=== PATIENT | female | born 1940 | race Caucasian/White ===

== ENCOUNTER → 2022-09-02 | Outpatient (REF) | payer OTHER, MEDICARE, SELFPAY ==
[2022-09-02 10:28] LABS: Mucous, Urine 0 SEEN /hpf (<or=2+); Red Blood Cells-Urine 0 SEEN /hpf (0-5)
[2022-09-02 10:42] LABS: Color, Urine Yellow (Yellow); Glucose, Dipstick Normal (Normal); Ketone-Dipstick Negative (Negative); Leukocyte Esterase-Dipstick 500 /ul (Negative); Nitrite-Dipstick Negative (Negative); Occult Blood-Urine 10 /ul (Negative); Protein-Dipstick 100 mg/dl (Negative); Urine Bilirubin Dipstick Negative (Negative); Urine Clarity Clear (Clear); Urine Urobilinogen Normal (Normal)
[2022-09-02 11:02] LABS: Absolute Neutrophil Count 4.2 X10^3/uL (2.0-7.7); Basophil# 0.04 X10^3/uL; Basophil% 0.7 % (0-1); Eosinophil# 0.15 X10^3/uL; Eosinophils% 2.6 % (0-5); Hematocrit 37.1 % (37-47); Lymphocyte % 12.2 % (19-41); Mean Corp Hgb Conc 32.3 g/dL (32-36); Mean Corpuscular Hgb 28.2 pg (27.0-32.0); Mean Corpuscular Volume 87.3 fL (81-99); Monocyte# 0.61 X10^3/uL; Monocyte% 10.6 % (0-10); NRBC Flagged by Analyzer 0 % (0-5); Neutrophil # 4.22 X10^3/uL (2.7-7.7); Neutrophil % 73.6 % (47-70); Platelet Count 221 K/mm3 (150-450); RBC Distribution Width CV 13.9 % (11.6-14.6); RBC Distribution Width SD 44.5 fl (35.1-43.9); Red Blood Count 4.25 M/mm3 (4.2-5.4); White Blood Count 5.7 K/mm3 (4.4-11.0)
[2022-09-02 11:22] LABS: Bacteria 1+ /hpf (None Seen); Squamous Epithelial Cells - UA 10-25 SEEN /hpf (5-10); White Blood Cells 10-25 SEEN /hpf (0-5)
[2022-09-02 11:37] LABS: ALB/GLOB Ratio 0.8 RATIO (0.9-2.4); AST(SGOT) 24 U/L (15-37); Alanine Aminotransfer ALT/SGPT 21 U/L (13-56); Albumin, Serum 3.2 g/dL (3.2-5.0); Alkaline Phosphatase 108 U/L (45-117); Anion Gap 5 (5-15); BUN 32 mg/dL (7-18); Calcium,Total 9.1 mg/dL (8.5-10.1); Chloride 109 mmol/L (98-107); Creatinine, Serum 1.78 mg/dL (0.55-1.02); EST Glomerular Filtration Rate 29 mL/min (>60); Est Glom Filt Rate - Afr Amer 35 mL/min (>60); Globulin 3.8 g/dL (2.2-4.2); Glucose 206 mg/dL (74-106); Potassium 4.3 mmol/L (3.5-5.1); Sodium Level 138 mmol/L (136-145); T4 Total, Thyroxin 9.4 ug/dL (4.8-13.9); Thyroid Stim Hormone (TSH) 0.83 uIU/mL (0.358-3.74)
[2022-09-04 07:42] LABS: Vitamin D,25 Hydroxy 33.1 ng/mL
== END ==
LOC: OLS.BROOKB 10:05
PROVIDERS: Referring Provider Family Medicine; Visit Provider Family Medicine
DX: N39.0 Urinary tract infection, site not specified (principal); F03.90 Unspecified dementia, unspecified severity, without behavioral disturbance, psychotic disturbance, mood disturbance, and anxiety; E55.9 Vitamin D deficiency, unspecified; R53.83 Other fatigue; I10 Essential (primary) hypertension
CPT/HCPCS: 36415; 80053; 81001; 82306; 84436; 84443; 85025; 87086; 87088

== ENCOUNTER 2022-09-05 12:09 | Emergency (ER) | payer OTHER, MEDICARE, SELFPAY ==
[2022-09-05 12:11] VITALS: BP 154/102; PULSE 60; RESP 16; TEMP 36.1; O2SAT 96; BMI 21.2
--- NOTE | 2022-09-05 12:25 | CT_ITS ---
STUDY: CT BRAIN WITHOUT CONTRAST REASON FOR EXAM: Female, 82 years old. head injury RADIATION DOSAGE (If Supplied By Facility): CTDIvol = ( 44.99 ) mGy, DLP = ( 762.36 ) mGycm TECHNIQUE: Transaxial CT imaging of the brain was performed without administration of intravenous contrast material. Individualized dose optimization techniques were used for this CT. COMPARISON: No relevant priors. FINDINGS: Normal soft tissue structures. Normal calvarium. There is mild cerebral atrophy with widening of the extra-axial spaces and ventricular dilatation. There are areas of decreased attenuation within the white matter tracts of the supratentorial brain, consistent with microvascular disease changes. There are small punctate calcifications of the basal ganglia which are seen in the aging brain as a normal variant. Probable old lacunar infarct of the right side of the elizabeth. There is mild cerebellar atrophy. 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 Encephalomalacia in the right frontal and parietal lobes from previous infarcts. 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 There is no intracranial hemorrhage. There are no findings of an acute ischemic infarction. Normal visualized paranasal sinuses. CT/Brain/Head without Contrast IMPRESSION: No definite acute abnormality. Old infarcts. Chronic involutional changes of the brain. Electronically Signed: John Evans MD at 12:54 EDT ,
--- NOTE | 2022-09-05 12:25 | CT_ITS ---
STUDY: CT CERVICAL SPINE WITHOUT CONTRAST REASON FOR EXAM: Female, 82 years old. polytrauma RADIATION DOSAGE (If Supplied By Facility): CTDIvol = ( 14.81 ) mGy, DLP = ( 300.52 ) mGycm TECHNIQUE: High resolution transaxial imaging was performed without contrast material. Sagittal and coronal images were reconstructed. Individualized dose optimization techniques were used for this CT. COMPARISON: None FINDINGS: No definite acute fracture/dislocation. The cervical junction is intact. C1-C2 articulation is intact. Curvature is within normal limits. There is normal alignment. Facet joints are intact at all levels bilaterally. No jumped facets. There is multilevel spondyloarthropathy. Multilevel degenerative disc disease seen. Multilevel loss of disc height. Multilevel posterior marginal osteophytes and disc bulges. Multilevel neural foraminal narrowing. Multilevel narrowing of the spinal canal. Heavily calcified carotid arteries, otherwise the paraspinal soft tissues and structures are unremarkable. CT/Spine Cervical without Contras IMPRESSION: There is no definite acute fracture/dislocation. Degenerative changes. Electronically Signed: John Evans MD at 12:56 EDT ,
[2022-09-05] MEDS: Lidocaine 1% (20 ml mdv) 20 ML Vial INFILT (12:29)
--- NOTE | 2022-09-05 12:41 | ED.VIS.FALL ---
HPI HPI - Fall History of Present Illness Chief Complaint: Fall Informant: EMS and SNF Narrative Narrative: Sent in from [facility] unwitnessed fall head injury. History of Alzheimer's dementia. Patient denies any symptoms. Reviewing records no anticoagulants she is DNR CCA as of 3 days ago. Denies chest pains abdominal pain denies nausea or vomiting. PFSH PFSH Medical History Alzheimer disease CAD (coronary artery disease) DMII (diabetes mellitus, type 2) HLD (hyperlipidemia) HTN (hypertension) Seizures Allergy/AdvReac Type Severity Reaction Status Date / Time celecoxib [From Celebrex] Allergy PT UNABLE Verified 09/05/22 13:16 TO RESPOND-NEEDS F/U ezetimibe [From Zetia] Allergy PT UNSURE Verified 09/05/22 13:16 OF REACTION hydralazine Allergy PT UNABLE Verified 09/05/22 13:16 TO RESPOND-NEEDS F/U Social History Smoking Status: Unknown if ever smoked ROS ROS ED Constitutional Constitutional ED: Denies chills, fever(s) or sweats Eyes Eyes: Denies change in vision ENT ENT ED: Denies dysphagia or sore throat Cardiovascular Cardiovascular: Denies chest pain, leg edema, palpitations or racing heartbeat Respiratory/Chest Respiratory/Chest: Denies cough, dyspnea or dyspnea on exertion Gastrointestinal Gastrointestinal: Denies abdominal pain, diarrhea, nausea or vomiting Genitourinary Genitourinary ED: Denies dysuria, hematuria or urinary frequency Musculoskeletal Musculoskeletal: Denies back pain, extremity pain or neck pain Integumentary Reports wounds; Denies rash Neurologic Neurologic: Denies headache(s), paresthesias or weakness EXAM Physical Exam Const Vital Signs: 09/05/22 12:11 09/05/22 12:15 09/05/22 15:12 Temperature 97.0 F L Temperature Source Temporal Pulse Rate 60 66 Respiratory Rate 16 16 Respiratory Effort Normal Non-Labored Respiratory Depth Normal Respiratory Pattern Normal Blood Pressure 154/102 H 150/52 H Blood Pressure Mean 119 84 Pulse Ox 96 97 Oxygen Delivery Method Room Air Room Air Room Air 09/05/22 17:49 Temperature Temperature Source Pulse Rate 69 Respiratory Rate 16 Respiratory Effort Respiratory Depth Respiratory Pattern Blood Pressure 132/94 H Blood Pressure Mean 106 Pulse Ox 95 Oxygen Delivery Method Room Air Positive well nourished and well developed Constitutional Narrative: No acute distress, nontoxic General Appearance ED: well developed HEENT Reports moist mucous membranes HEENT Narrative: 3 cm laceration right temporal region with no active bleeding. No hemotympanums. normocephalic Eyes PERRL, EOMs intact bilaterally and conjunctivae normal General Eye ED: Yes normal appearance of both eyes Neck no lymphadenopathy and supple General: Negative for tenderness Chest Wall inspection of chest normal and palpation of chest normal Chest: Negative for tenderness Resp normal respiratory effort and normal air movement Effort and Inspection: symmetric chest movement; Negative for respiratory distress Cardio regular rate, regular rhythm and no murmurs Peripheral Pulses: pulses 2+ throughout GI normal to inspection, nondistended, normoactive bowel sounds and non-tender Palpation: Negative for guarding or rebound tenderness present Back/Spine no CVA tenderness and no thoracic nor lumbar tenderness Extremity Extremity Narrative: Patient tenderness left lower pelvic mild pain with logroll. There is no deformities, no shortening or rotation. Distal pulses are intact. General Extremety ED: Negative for edema or tenderness General Extremity: Negative for edema Neuro no sensory deficits noted Neuro Narrative: Alert to person and following commands. Sensorium / Orientation: awake and alert Skin no rashes or lesions noted and no wounds MDM MDM MDM Narrative Medical decision making narrative: Interventions / MDM: Differential diagnosis: Cranial hemorrhage, scalp laceration, left hip fracture, hip contusion, pelvic fracture Diagnosis considered but do not suspect: N/A My EKG interpretation: N/A Imaging independently reviewed and interpreted by myself: CT brain/cervical spine: No intracranial hemorrhage no cervical spine fractures also read by radiology. 3 view left hip and pelvis: No fracture or dislocation. External documents reviewed: N/A Test considered but not ordered:N/A ED course: Patient unwitnessed fall dementia history DNR [facility]. No anticoagulation. Trauma scans head and neck was negative. On exam had hip pain with no deformities. X-ray negative. Reevaluation increasing pain attempted sitting she had increasing pain, granddaughter was present. She has been at the memory unit only for the past week. She is ambulatory without any assistance. Discussed secondary to increasing pain needs to rule out occult fracture. MRI of the pelvis/hip was ordered. 1340: Procedure note: Verbal consent from granddaughter. Normal sterile conditions. 2 cc 1% lidocaine used for local analgesia wound right temporal region. Cleanse with normal saline. No visualized foreign bodies. Total 3, 6-0 nylon simpleinterrupted sutures used for good approximation of the wound. Patient tolerated procedure well. Bacitracin placed by myself. 1610: Called by MRI department, states patient moving around after additional morphine was given. The report is nondiagnostic. Discussed with nursing for Ativan IM to be given. 1700: Patient returned from imaging pending read. Increasing agitation and with her dementia. Granddaughter has seen this before. She is scheduled for Seroquel for which she takes 25 mg twice a day. She is likely not take oral medicine at this time, granddaughter agrees with given IM Geodon. This will be ordered. 1752: MRI results were limited however osseous structures were seen in negative for any fractures. Patient had better movement of her hips on reevaluation. She is at facility that can care for her. Negative occult fractures no intracranial hand read, sutures placed from the laceration. She will be discharged back to the facility. Re-evaluation: stable Disposition discussed with patient/family/significant other: granddaughter Case discussed with consulting clinician: N/A This note was generated with [employer] dictation software. It may contain incorrect words, spelling, and punctuation that were not noted in checking the note before signing. Radiography Diagnostic Testing: Clinical Impression(s) from Imaging Studies Brain CT 09/05/22 12:25 IMPRESSION: No definite acute abnormality. Old infarcts. Chronic involutional changes of the brain. Electronically Signed: John Evans MD at 12:54 EDT , Cervical Spine CT 09/05/22 12:25 IMPRESSION: There is no definite acute fracture/dislocation. Degenerative changes. Electronically Signed: John Evans MD at 12:56 EDT , Hip/Pelvis X-Ray 09/05/22 12:45 IMPRESSION: No acute fracture or dislocation seen. Electronically Signed: John Evans MD at 12:59 EDT , Pelvis MRI 09/05/22 13:19 IMPRESSION: 1. Markedly limited study due to lack of patient cooperation and subsequent motion artifact. The study is incomplete due to noncompliance by the patient. 2. No visualized pelvic or hip fracture. 3. No visualized soft tissue abnormality of the pelvis. Electronically Signed: Baldo Macias DO at 17:38 EDT , Discharge Plan Triage Chief Complaint: Fall ED Provider: Jose J Scott Dx/Rx/DC Orders Clinical Impression: Fall, Head injury, Laceration of scalp, Contusion of hip, left, Dementia Instructions: ED Head Injury (Adult), ED Hip Contusion, ED Laceration Scalp Stitches or [place] Activity Restrictions/Additional Instructions: CT head and neck are negative. Left hip x-ray negative. MRI of the left hip also negative. 3 sutures placed on the laceration. Patient will need this removed in 5 to 7 days. Disposition Disposition: Home, Self Care
--- NOTE | 2022-09-05 12:45 | RAD_ITS ---
STUDY: X-RAY - PELVIS AND LEFT HIP REASON FOR EXAM: Female, 82 years old. injury TECHNIQUE: 3 views of the pelvis and hip. COMPARISON: None. FINDINGS: There is a non-specific bowel gas pattern. Normal visualized soft tissue structures. There are atherosclerotic vascular calcifications. Normal bilateral iliac wings, sacroiliac joints and visualized sacrum. Normal bilateral superior and inferior pubic rami. Normal pubic symphysis. Normal bilateral ischial tuberosities. There are osteoarthritic changes of the femoral head with marginal osteophyte formation. Normal acetabulum. There is moderate articular joint space narrowing of the hip. RAD/HIP, UNI W/ Pelvis 2-3 Views IMPRESSION: No acute fracture or dislocation seen. Electronically Signed: John Evans MD at 12:59 EDT ,
--- NOTE | 2022-09-05 13:17 | ED.RN ---
this rn attempts to get pt up to ambulate. pt unable to sit up without extreme pain to left hip area
--- NOTE | 2022-09-05 13:19 | MRI_ITS ---
STUDY: MR PELVIS WITHOUT CONTRAST REASON FOR EXAM: Female, 82 years old. Left hip injury. Fall. Dementia. Patient refused exam and was crawling off the table. Marked motion artifact despite medication. TECHNIQUE: Standardized fat and water weighted pulse sequences were obtained in all 3 orthogonal planes. COMPARISON: Pelvis and left hip, 05/08/2022 FINDINGS: Normal urinary bladder. Normal visualized small intestine. Normal visualized colon. Normal appearing uterus. No adnexal mass. There is no pelvic fluid. There is no pelvic mass lesion or lymphadenopathy. No free air. Normal visualized pelvic arteries. Normal osseous structures. No evidence of fracture or dislocation. Normal abdominal wall. MRI/Pelvis (Routine) IMPRESSION: 1. Markedly limited study due to lack of patient cooperation and subsequent motion artifact. The study is incomplete due to noncompliance by the patient. 2. No visualized pelvic or hip fracture. 3. No visualized soft tissue abnormality of the pelvis. Electronically Signed: Baldo Macias DO at 17:38 EDT ,
[2022-09-05] MEDS: Morphine 2 MG/ML Syringe IM ×2 (13:27→15:50)
[2022-09-05 15:12] VITALS: BP 150/52; PULSE 66; RESP 16; O2SAT 97
[2022-09-05] MEDS: LORazepam 2 MG/ML Syringe 1 MG IM (16:24)
--- NOTE | 2022-09-05 16:52 | RAD.NOTE ---
Partial exam only. Pt medicated x 2 and still refusing exam. Screaming in scanner, moving, attempting to climb off table. Pt returned to ER room and charge nurse notified
[2022-09-05] MEDS: Ziprasidone IM 20 MG/ML VIAL 10 MG IM (17:08)
[2022-09-05 17:49] VITALS: BP 132/94; PULSE 69; RESP 16; O2SAT 95
--- NOTE | 2022-09-05 18:17 | NURSING ---
CALLED [facility], ETA IS 2 TO 3 HOURS
--- NOTE | 2022-09-05 20:09 | ED.RN ---
Attempted to call report to Agata Melgar. no answer at this time.
[2022-09-05 20:28] VITALS: PULSE 68; RESP 17; O2SAT 94
[2022-09-05 21:56] VITALS: BP 165/97; PULSE 70; RESP 20; O2SAT 95
== END 2022-09-05 22:41 | disposition home or self-care (01) ==
PROVIDERS: Emergency Provider Emergency Medicine; Visit Provider Emergency Medicine
DX: S01.01XA Laceration without foreign body of scalp, initial encounter (principal); F02.80 Dementia in other diseases classified elsewhere, unspecified severity, without behavioral disturbance, psychotic disturbance, mood disturbance, and anxiety; G30.9 Alzheimer's disease, unspecified; S70.02XA Contusion of left hip, initial encounter; I25.10 Atherosclerotic heart disease of native coronary artery without angina pectoris; W19.XXXA Unspecified fall, initial encounter
CPT/HCPCS: 12002; 70450; 72125; 72195; 73502; 96372; 99284; J3486

== ENCOUNTER → 2022-09-11 | Outpatient (REF) | payer OTHER, SELFPAY ==
[2022-09-11 08:40] LABS: Bacteria 0 SEEN /hpf (None Seen); Mucous, Urine 0 SEEN /hpf (<or=2+); Red Blood Cells-Urine 0 SEEN /hpf (0-5); Squamous Epithelial Cells - UA 0 SEEN /hpf (5-10); White Blood Cells 0 SEEN /hpf (0-5)
[2022-09-11 09:23] LABS: Color, Urine Yellow (Yellow); Glucose, Dipstick 50 mg/dl (Normal); Ketone-Dipstick 5 mg/dl (Negative); Leukocyte Esterase-Dipstick 25 /ul (Negative); Nitrite-Dipstick Negative (Negative); Occult Blood-Urine Negative /ul (Negative); Protein-Dipstick 100 mg/dl (Negative); Specific Gravity, Urine 1.015 (1.002-1.030); Urine Bilirubin Dipstick Negative (Negative); Urine Clarity Sl. Cloudy (Clear); Urine Urobilinogen Normal (Normal)
== END ==
LOC: OLS.BROOKB
PROVIDERS: Referring Provider Family Medicine; Visit Provider Family Medicine
DX: R53.83 Other fatigue (principal); R50.9 Fever, unspecified; Z79.899 Other long term (current) drug therapy
CPT/HCPCS: 81001; 87086; 87088

== ENCOUNTER → 2022-09-14 | Outpatient (REF) | payer OTHER, SELFPAY ==
[2022-09-14 10:27] LABS: Valproic Acid (Depakene) Level 20 ug/mL (50-100)
== END ==
LOC: OLS.BROOKB 05:00
PROVIDERS: Visit Provider Family Medicine
DX: F03.90 Unspecified dementia, unspecified severity, without behavioral disturbance, psychotic disturbance, mood disturbance, and anxiety (principal); Z79.899 Other long term (current) drug therapy
CPT/HCPCS: 36415; 80164

== ENCOUNTER → 2022-09-18 | Outpatient (REF) | payer OTHER, MEDICARE, SELFPAY ==
[2022-09-18 08:32] LABS: Valproic Acid (Depakene) Level 14 ug/mL (50-100)
== END ==
LOC: OLS.BROOKB 05:00
PROVIDERS: Visit Provider Family Medicine
DX: F03.90 Unspecified dementia, unspecified severity, without behavioral disturbance, psychotic disturbance, mood disturbance, and anxiety (principal); Z79.899 Other long term (current) drug therapy
CPT/HCPCS: 36415; 80164

== ENCOUNTER → 2022-10-02 | Outpatient (REF) | payer MEDICARE, OTHER, SELFPAY ==
[2022-10-02 08:48] LABS: Hemoglobin A1c 7.4 % (3.8-5.6)
== END ==
LOC: OLS.BROOKB 05:00
PROVIDERS: Visit Provider Family Medicine
DX: R73.09 Other abnormal glucose (principal)
CPT/HCPCS: 36415; 83036

== ENCOUNTER 2022-10-08 19:14 | Emergency (ER) | payer OTHER, SELFPAY ==
[2022-10-08 19:15] VITALS: BP 167/99; RESP 18; TEMP 36.2; O2SAT 97; BMI 24.9
--- NOTE | 2022-10-08 19:34 | CT_ITS ---
EXAM: CT CERVICAL SPINE WITHOUT INTRAVENOUS CONTRAST CLINICAL INDICATION: nec pain TECHNIQUE: Helically acquired images were obtained of the cervical spine without intravenous contrast. 2D reformatted images were reviewed. This CT exam was performed using one or more of the following dose reduction techniques: automated exposure control, adjustment of the mA and/or kV according to patient size, and/or use of iterative reconstruction technique. COMPARISON: No relevant prior studies available. FINDINGS: VERTEBRAE: See below. DISCS/SPINAL CANAL/NEURAL FORAMINA: There is disc space narrowing at C4-5, C5-6 and C6-7. There is severe right bony neural foraminal narrowing at C4-5. SOFT TISSUES: Unremarkable. No prevertebral soft tissue swelling. LYMPH NODES: Unremarkable. No cervical adenopathy. MASTOID AIR CELLS: There is fluid in the right mastoid air cells. LUNG APICES: Unremarkable as visualized. Clear. CT/Spine Cervical without Contras IMPRESSION: 1. No acute osseous abnormalities cervical spine. 2. Multilevel degenerative change with disc space narrowing and bony neural foraminal narrowing. Electronically Signed: Ascencion Barrera MD at 21:34 EDT ,
--- NOTE | 2022-10-08 19:34 | CT_ITS ---
EXAM: CT HEAD WITHOUT INTRAVENOUS CONTRAST CLINICAL INDICATION: head TECHNIQUE: Multiple axial images were obtained of the head without intravenous contrast. This CT exam was performed using one or more of the following dose reduction techniques: automated exposure control, adjustment of the mA and/or kV according to patient size, and/or use of iterative reconstruction technique. COMPARISON: 09/05/2022 FINDINGS: BRAIN AND EXTRA-AXIAL SPACES: There is minimal encephalomalacia in the inferior aspect of the left cerebellum which is stable represent small remote infarct. There is stable mild enlargement of the ventricular system and cortical sulci. There is hypoattenuation in the periventricular white matter. Stable minimal encephalomalacia in the high right frontal and parietal lobes. No intra- or extra-axial hemorrhage. No intracranial mass or mass effect. Basal cisterns are patent. BONES/JOINTS: Unremarkable. No discrete lytic or blastic abnormalities. VASCULATURE: There is artifact from an aneurysm coil. SINUSES: Unremarkable as visualized. Clear. MASTOID AIR CELLS: Unremarkable. Clear. ORBITS: Visualized globes, extraocular muscles, optic nerves and retrobulbar fat appear unremarkable. CT/Brain/Head without Contrast IMPRESSION: 1. No acute intracranial abnormality. There has been no change from the reference. 2. Stable underlying senescent change with small vessel ischemia. 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 Electronically Signed: Ascencion Barrera MD at 21:31 EDT ,
--- NOTE | 2022-10-08 19:40 | EDS_ITS ---
HPI <NOMAN Page - Last Filed: 10/08/22 20:46> History of Present Illness Chief Complaint: Fall Narrative Narrative: Patient is 82-year-old female that lives in a dementia unit with history of dementia, anxiety who presents to the emergency department after mechanical fall. Patient has been known to get out of bed on her own, she fell. There fall specifics are unknown, patient was found down. The patient could not get back up, the staff called the squad concerning for a hip fracture. Patient is not any blood thinners have there is unknown if she hit her head or not. Per the family, they are acting appropriate. PFS <NOMAN Page - Last Filed: 10/08/22 20:46> [facility] Medical History (Updated 10/08/22 @ 23:[address] Conrado Sosa, DO) Alzheimer disease Aneurysm Atherosclerotic heart disease Bradycardia CAD (coronary artery disease) DMII (diabetes mellitus, type 2) Dysphagia following other cerebrovascular disease HLD (hyperlipidemia) HTN (hypertension) Injury of kidney Restlessness and agitation Right bundle branch block (RBBB) Seizures Home Medications albuterol sulfate 90 mcg/actuation aerosol inhaler 1 puff inhalation PRN SOB 10/08/22 [History Last Taken Unknown] atorvastatin 20 mg tablet mg PO DAILY 10/08/22 [History Last Taken Unknown] carvedilol 6.25 mg tablet mg PO BID 10/08/22 [History Last Taken Unknown] clonazepam 0.5 mg tablet 0.25 mg PO Q6H PRN anxiety 10/08/22 [History Last Taken Unknown] divalproex 125 mg capsule,delayed release sprinkle mg PO DAILY 10/08/22 [History Last Taken Unknown] levetiracetam 1,000 mg tablet mg PO BID 10/08/22 [History Last Taken Unknown] trazodone 100 mg tablet mg PO DAILY 10/08/22 [History Last Taken Unknown] Allergy/AdvReac Type Severity Reaction Status Date / Time celecoxib [From Celebrex] Allergy PT UNABLE Verified 09/05/22 13:16 TO RESPOND-NEEDS F/U ezetimibe [From Zetia] Allergy PT UNSURE Verified 09/05/22 13:16 OF REACTION hydralazine Allergy PT UNABLE Verified 09/05/22 13:16 TO RESPOND-NEEDS F/U Social History Smoking Status: Unknown if ever smoked ROS <Ralph KimberlyNOMAN oliveros - Last Filed: 10/08/22 20:46> ROS ED ROS Narrative Secondary to the patient's dementia, is difficult to get a review of symptoms. EXAM <Ralph HarrisNOMAN oliveros - Last Filed: 10/08/22 20:46> Physical Exam Narrative Exam Narrative: Vital signs reviewed. Patient appears to be in no distress. Vital signs are stable. The family is bedside and they states that she is acting appropriate. HEET: Head normocephalic atraumatic, TMs clear bilaterally. Posterior pharynx is clear, moist mucous membranes. Nares clear bilaterally. Pupils are equal round reactive to light. Negative for any hemotympanum, septal hematoma. Neck: Supple with no lymphadenopathy or tenderness. No signs of meningismus, negative jolt sign. Cardiac: Regular rate and rhythm no murmurs gallops or rubs, equal peripheral pulses bilaterally. Respiratory: Lungs clear to auscultation bilaterally. No chest tenderness. Abdomen: Soft, nontender, nondistended. No abdominal bruit or pulsatile masses. No hepatosplenomegaly Extremities: No peripheral edema, no signs of gross trauma or deformity. Active full range of motion of all extremities. Patient was moving both of her legs on her own. I was able to completely flex and extend the hips without any difficulty. No evidence of any fracture. Patient's pelvic girdle appears to be intact. There is no pain. Neuro: Cranial nerves II through XII intact, no focal neurological deficits. Skin: Clean dry and intact with no rash, purpura, petechiae, vesicles or pustules. Patient does have a skin tear to the left elbow that is 2 days old. There is some bleeding from the bandage. Patient is moving her arms without difficulty. Backs/flank: No CVA tenderness, no midline spinal tenderness, no deformity. Psych: Normal mood and affect. No SI, HI or acute psychosis. Const Vital Signs: 10/08/22 19:15 10/08/22 19:38 Temperature 97.2 F L Temperature Source Temporal Respiratory Rate 18 Respiratory Effort Normal Blood Pressure 167/99 H Blood Pressure Mean 121 Pulse Ox 97 Oxygen Delivery Method Room Air <Dr. Conrado Sosa, DO - Last Filed: 10/08/22 23:23> Physical Exam Const Vital Signs: 10/08/22 19:15 10/08/22 19:38 Temperature 97.2 F L Temperature Source Temporal Respiratory Rate 18 Respiratory Effort Normal Blood Pressure 167/99 H Blood Pressure Mean 121 Pulse Ox 97 Oxygen Delivery Method Room Air [facility] <Ralph Hale [employer] - Last Filed: 10/08/22 20:46> MDM Radiography Diagnostic Testing: Clinical Impression(s) from Imaging Studies Brain CT 10/08/22 19:34 IMPRESSION: 1. No acute intracranial abnormality. There has been no change from the reference. 2. Stable underlying senescent change with small vessel ischemia. 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 Electronically Signed: Ascencion Barrera MD at 21:31 EDT , Cervical Spine CT 10/08/22 19:34 IMPRESSION: 1. No acute osseous abnormalities cervical spine. 2. Multilevel degenerative change with disc space narrowing and bony neural foraminal narrowing. Electronically Signed: Ascencion Barrera MD at 21:34 EDT , Hip/Pelvis X-Ray 10/08/22 20:25 IMPRESSION: There are no acute osseous abnormalities. Degenerative changes with narrowing of the left hip joint. Electronically Signed: Ascencion Barrera MD at 21:09 EDT , Shoulder X-Ray 10/08/22 20:25 IMPRESSION: No acute osseous abnormalities. There are degenerative changes with joint space narrowing. Electronically Signed: Ascencion Barrera MD at 21:16 EDT , Treatment and Re-Evaluation :: Patient appears to be in no distress. Patient is acting appropriate per the family. Patient appears nontoxic, vital signs are stable. Presenting from an Alzheimer's unit, dementia unit, the patient was found down. She had difficulty getting up, EMS was called concern for hip fracture. However my examination shows no hip fracture, pelvic injury. Patient is moving all extremities. No evidence of trauma other than a old skin tear left elbow. At this time, patient received a CT scan of the brain and neck secondary to the fall being unwitnessed. Tetanus is up-to-date per the son. Patient received x-rays of the pelvis, bilateral hips, these were unremarked for any acute osseous abnormality. Patient's x-ray of shoulder, CT scan of the brain, cervical spine were grossly unremarkable. Patient continues to remain acting appropriate per the family. At this time, there is no evidence of any hip fracture, skull fracture, cervical spine fracture, no intracranial bleeding. Patient does live in the facility. Patient is stable go back to the facility, I do have 24-hour care there. Patient and family is instructed to never get up unless she has help or assistance. All questions answered, they are stable for discharge. ED attending note: I evaluated the patient in conjunction with the ROGELIO. I agree with his/her statements and above findings. I have personally performed a face to face assessment of the patient and have reviewed the ROGELIO Note. I performed a substantive portion of the visit including all aspects of the following. I personally saw the patient performed chart review, physical exam, reviewed labs, imaging (if obtained), and formulated a treatment and management plan. Brief history: 82-year-old female here for mechanical fall from standing. Patient complains of left hip pain and neck pain. Exam: Primary Survey Airway: Intact Breathing: Bilateral breath sounds Circulation: Palpable bilateral femorals, Palpable bilateral radial, Palpable bilateral DP and Palpable bilateral PT Disability / Spine precautions GCS Score: Eye Openin Verbal Response: 5 Motor Response: 6 Secondary Survey Constitutional: Please see MDM Head: Atraumatic, Midface stable, NO jaw malocclusion, No Cephalohematoma, and No Lacerations noted Eye: Pupils equal round and reactive to light, Extraocular muscles intact and No periorbital ecchymosis or stepoff, no evidence of entrapment ENT: Oropharynx clear, no lacerations, no hemotympanum, no raccoon eyes or hernandez sign Cervical spine / Neck: No cervical spine bony tenderness, crepitance, or stepoff deformity Trachea midline Lungs: Clear to auscultation, No asymmetric rise and No crepitus, no flail chest Cardiac: Regular rate and rhythm and No murmurs Abdomen: Soft, Nontender and No rebound Pelvis: Pelvis stable to compression, TTP with palpation over left hip. : No evidence of genital injury Back: No midline bony tenderness to thoracic/lumbar/sacral spines Neuro: At baseline, intact strength and sensation in bilateral upper and lower extremities. 2+ patellar reflexes bilaterally. Extremities: NO gross Deformities Skin: Skin tear noted to the left elbow Psych: Normal affect Nursing triage notes reviewed, Vital signs reviewed MDM/plan: Chief Complaint: Fall, head trauma, hip pain External records reviewed: Seen on 09/05/2022 for left hip contusion Factors affecting care: No blood thinners Social determinants of health: Elderly, history of dementia History obtained from others: Patient's son [facility] narrative: The patient was hemodynamically stable, afebrile, nontoxic-appearing. Primary secondary trauma surveys concerning for intracranial normality, cervical spine abnormality and left hip abnormality. We will obtain images including CT scan of the head, CT scan cervical spine x- ray of the left hip and pelvis. We will dispo based on results of imaging studies, tertiary exam, vital sign evaluation shared decision making. Shared decision making: I will have a discussion with the patient and or visitors regarding risk/benefits of further testing or admission. They will be made aware of of the risk/benefits inherent in this decision they will be given the opportunity to voice understanding. Consults: None at this time <Dr. Conrado Sosa, DO - Last Filed: 10/08/22 23:23> [facility] Radiography Diagnostic Testing: Clinical Impression(s) from Imaging Studies Brain CT 10/08/22 19:34 IMPRESSION: 1. No acute intracranial abnormality. There has been no change from the reference. 2. Stable underlying senescent change with small vessel ischemia. 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 Electronically Signed: Ascencion Barrera MD at 21:31 EDT , Cervical Spine CT 10/08/22 19:34 IMPRESSION: 1. No acute osseous abnormalities cervical spine. 2. Multilevel degenerative change with disc space narrowing and bony neural foraminal narrowing. Electronically Signed: Ascencion Barrera MD at 21:34 EDT , Hip/Pelvis X-Ray 10/08/22 20:25 IMPRESSION: There are no acute osseous abnormalities. Degenerative changes with narrowing of the left hip joint. Electronically Signed: Ascencion Barrera MD at 21:09 EDT , Shoulder X-Ray 10/08/22 20:25 IMPRESSION: No acute osseous abnormalities. There are degenerative changes with joint space narrowing. Electronically Signed: Ascencion Barrera MD at 21:16 EDT , Treatment and Re-Evaluation :: Patient appears to be in no distress. Patient is acting appropriate per the family. Patient appears nontoxic, vital signs are stable. Presenting from an Alzheimer's unit, dementia unit, the patient was found down. She had difficulty getting up, EMS was called concern for hip fracture. However my examination shows no hip fracture, pelvic injury. Patient is moving all extremities. No evidence of trauma other than a old skin tear left elbow. At this time, patient received a CT scan of the brain and neck secondary to the fall being unwitnessed. Tetanus is up-to-date per the son. Patient received x-rays of the pelvis, bilateral hips, these were unremarked for any acute osseous abnormality. Patient's x-ray of shoulder, CT scan of the brain, cervical spine were grossly unremarkable. Patient continues to remain acting appropriate per the family. At this time, there is no evidence of any hip fracture, skull fracture, cervical spine fracture, no intracranial bleeding. Patient does live in the facility. Patient is stable go back to the facility, I do have 24-hour care there. Patient and family is instructed to never get up unless she has help or assistance. All questions answered, they are stable for discharge. ED attending note: I evaluated the patient in conjunction with the ROGELIO. I agree with his/her statements and above findings. I have personally performed a face to face assessment of the patient and have reviewed the ROGELIO Note. I performed a substantive portion of the visit including all aspects of the following. I personally saw the patient performed chart review, physical exam, reviewed labs, imaging (if obtained), and formulated a treatment and management plan. Brief history: 82-year-old female here for mechanical fall from standing. Patient complains of left hip pain and neck pain. Exam: Primary Survey Airway: Intact Breathing: Bilateral breath sounds Circulation: Palpable bilateral femorals, Palpable bilateral radial, Palpable bilateral DP and Palpable bilateral PT Disability / Spine precautions GCS Score: Eye Openin Verbal Response: 5 Motor Response: 6 Secondary Survey Constitutional: Please see MDM Head: Atraumatic, Midface stable, NO jaw malocclusion, No Cephalohematoma, and No Lacerations noted Eye: Pupils equal round and reactive to light, Extraocular muscles intact and No periorbital ecchymosis or stepoff, no evidence of entrapment ENT: Oropharynx clear, no lacerations, no hemotympanum, no raccoon eyes or hernandez sign Cervical spine / Neck: No cervical spine bony tenderness, crepitance, or stepoff deformity Trachea midline Lungs: Clear to auscultation, No asymmetric rise and No crepitus, no flail chest Cardiac: Regular rate and rhythm and No murmurs Abdomen: Soft, Nontender and No rebound Pelvis: Pelvis stable to compression, TTP with palpation over left hip. : No evidence of genital injury Back: No midline bony tenderness to thoracic/lumbar/sacral spines Neuro: At baseline, intact strength and sensation in bilateral upper and lower extremities. 2+ patellar reflexes bilaterally. Extremities: NO gross Deformities Skin: 4 cm laceration noted to left elbow with mild bleeding. Psych: Normal affect Nursing triage notes reviewed, Vital signs reviewed MDM/plan: Chief Complaint: Fall, head trauma, hip pain External records reviewed: Seen on 09/05/2022 for left hip contusion Factors affecting care: No blood thinners Social determinants of health: Elderly, history of dementia History obtained from others: Patient's son MDM narrative: The patient was hemodynamically stable, afebrile, nontoxic-appearing. Primary secondary trauma surveys concerning for intracranial normality, cervical spine abnormality and left hip abnormality. We will obtain images including CT scan of the head, CT scan cervical spine x- ray of the left hip and pelvis. We will dispo based on results of imaging studies, tertiary exam, vital sign evaluation shared decision making. Shared decision making: I will have a discussion with the patient and or visitors regarding risk/benefits of further testing or admission. They will be made aware of of the risk/benefits inherent in this decision they will be given the opportunity to voice understanding. Consults: None at this time Procedure: Laceration repair. The procedure was performed by myself. Indication: Wound repair Risks and benefits: risks, benefits and alternatives were discussed Consent: Consent was obtained. Linear superficial laceration noted to the left lateral elbow Anesthesia: None Wound prep: Patient was prepped and draped in the usual sterile fashion. Tetanus: Irrigation Solution: Saline Wound Preparation: Chlorhexidine The wound was explored to its base in a bloodless field. Procedure Description: I applied 6 simple interrupted sutures with 4-0 Vicryl absorbable sutures. Patient tolerated procedure well wound was approximated. Affections precautions were discussed. Patient tolerated the procedure well with no immediate complications Vital Sign Attestation:: Discharge Plan Triage Chief Complaint: Fall ED Midlevel Provider: Ralph Hale ED Provider: Conrado Sosa Dx/Rx/DC Orders Clinical Impression: Contusion of hip, Fall, Laceration Instructions: Bruises (Contusions), Exercises to Prevent Falls Prescriptions: No Action carvedilol 6.25 mg tablet PO BID atorvastatin 20 mg tablet PO DAILY Patient Comments: Take 1 tablet by mouthTonce daily. clonazepam 0.5 mg tablet 0.25 mg PO Q6H PRN (Reason: anxiety) albuterol sulfate 90 mcg/actuation HFA aerosol inhaler 1 puff INHALATION PRN divalproex 125 mg capsule, delayed rel sprinkle PO DAILY trazodone 100 mg tablet PO DAILY levetiracetam 1,000 mg tablet PO BID Primary Care Provider: Luana Hernandez Referrals: Luana Hernandez MD [Primary Care Provider] - Activity Restrictions/Additional Instructions: Please ensure that the patient only gets up with assistance. That she has someone with her at all times. Disposition Disposition: Home, Self Care
--- NOTE | 2022-10-08 20:25 | RAD_ITS ---
EXAM: XR LEFT SHOULDER COMPLETE, 2 OR MORE VIEWS CLINICAL INDICATION: shoulder pain TECHNIQUE: Two or more views of the left shoulder. COMPARISON: No relevant prior studies available. FINDINGS: BONES/JOINTS: There is narrowing of the acromioclavicular joint. No acute fracture. No subluxation. Normal alignment. No sclerotic or destructive changes observed. SOFT TISSUES: Unremarkable. No soft tissue swelling or gas. No radiopaque foreign body. RAD/Shoulder min 2 Views IMPRESSION: No acute osseous abnormalities. There are degenerative changes with joint space narrowing. Electronically Signed: Ascencion Barrera MD at 21:16 EDT ,
--- NOTE | 2022-10-08 20:25 | RAD_ITS ---
EXAM: XR LEFT HIP WITH PELVIS WHEN PERFORMED, 2 OR 3 VIEWS CLINICAL INDICATION: Hip pain, fall TECHNIQUE: Two or three views of the left hip with pelvis when performed. COMPARISON: No relevant prior studies available. FINDINGS: BONES/JOINTS: There are degenerative changes with narrowing of the left hip joint. No displaced fracture. No destructive or sclerotic lesions. Note that overlapping bowel shadows may however obscure fine detail. Sacroiliac joint is unremarkable. No widening of the pubic symphysis. SOFT TISSUES: Unremarkable. No soft tissue swelling or gas. RAD/HIP, UNI W/ Pelvis 2-3 Views IMPRESSION: There are no acute osseous abnormalities. Degenerative changes with narrowing of the left hip joint. Electronically Signed: Ascencion Barrera MD at 21:09 EDT ,
--- NOTE | 2022-10-08 20:37 | ED.RN ---
SHERRI FROM [facility] CALLED FOR UPDATE. INFORMED SHE IS IN CAT SCAN AND WAITING FOR RESULTS
[2022-10-08] MEDS: Ziprasidone IM 20 MG/ML VIAL IM (22:27)
[2022-10-09 00:34] VITALS: PULSE 94; RESP 15; O2SAT 95
--- NOTE | 2022-10-09 00:36 | ED.RN ---
report called to Angela Lyn at [facility]
== END 2022-10-09 01:30 | disposition home or self-care (01) ==
PROVIDERS: Emergency Provider Emergency Medicine; PCP Family Medicine; Visit Provider Emergency Medicine
DX: S70.02XA Contusion of left hip, initial encounter (principal); S51.012A Laceration without foreign body of left elbow, initial encounter; I25.10 Atherosclerotic heart disease of native coronary artery without angina pectoris; W19.XXXA Unspecified fall, initial encounter
CPT/HCPCS: 12002; 70450; 72125; 73030; 73502; 96372; 99284; J3486

== ENCOUNTER 2022-10-31 10:59 | Emergency (ER) | payer OTHER, SELFPAY ==
[2022-10-31 11:00] VITALS: BP 168/48; PULSE 57; RESP 18; TEMP 36.4; O2SAT 98; BMI 23.1
[2022-10-31 11:02] VITALS: BP 168/48; PULSE 57; RESP 18; TEMP 36.4; O2SAT 98
[2022-10-31 11:03] VITALS: TEMP 36.4; O2SAT 98
--- NOTE | 2022-10-31 11:12 | EDS_ITS ---
HPI HPI - Fall History of Present Illness Chief Complaint: Fall Informant: patient and EMS Occured/Mechanism Occurred: Today Mechanism/Context: Yes same level fall Pain/Injury Pain Location: none Associated Symptoms Associated Symptoms: Negative for Parasthesias, Weakness, Loss of function, Inability to ambulate, Loss of consciousness or Amnesia Narrative Narrative: 82-year-old female history of dementia currently in a local extended care facility. Also history of CAD, diabetes hypertension. She is DNR [facility] arrest. Reportedly had unwitnessed fall today at the extended care facility. Reportedly no LOC. She denies any complaints. Patient is not on any blood thinners. Prior similar symptoms: Yes Recent Illness/Hospitalization: No PFSH PFSH Medical History Alzheimer disease Aneurysm Atherosclerotic heart disease Bradycardia CAD (coronary artery disease) DMII (diabetes mellitus, type 2) Dysphagia following other cerebrovascular disease HLD (hyperlipidemia) HTN (hypertension) Injury of kidney Restlessness and agitation Right bundle branch block (RBBB) Seizures Home Medications albuterol sulfate 90 mcg/actuation aerosol inhaler 1 puff inhalation PRN SOB 10/08/22 [History Last Taken Unknown] atorvastatin 20 mg tablet mg PO DAILY 10/08/22 [History Last Taken Unknown] carvedilol 6.25 mg tablet mg PO BID 10/08/22 [History Last Taken Unknown] clonazepam 0.5 mg tablet 0.25 mg PO Q6H PRN anxiety 10/08/22 [History Last Taken Unknown] divalproex 125 mg capsule,delayed release sprinkle mg PO DAILY 10/08/22 [History Last Taken Unknown] levetiracetam 1,000 mg tablet mg PO BID 10/08/22 [History Last Taken Unknown] trazodone 100 mg tablet mg PO DAILY 10/08/22 [History Last Taken Unknown] Allergy/AdvReac Type Severity Reaction Status Date / Time celecoxib [From Celebrex] Allergy PT UNABLE Verified 10/31/22 11:03 TO RESPOND-NEEDS F/U ezetimibe [From Zetia] Allergy PT UNSURE Verified 10/31/22 11:03 OF REACTION hydralazine Allergy PT UNABLE Verified 10/31/22 11:03 TO RESPOND-NEEDS F/U Social History Smoking Status: Unknown if ever smoked ROS ROS ED ROS Narrative Denies. Due to the patient's dementia but she denies any recent illness. Review of Systems ROS Unobtainable: due to mental status Constitutional Constitutional ED: Denies chills or fever(s) Eyes Eyes: Denies blurry vision ENT ENT ED: Denies ear pain Cardiovascular Cardiovascular: Denies chest pain Respiratory/Chest Respiratory/Chest: Denies cough Gastrointestinal Gastrointestinal: Denies abdominal pain Genitourinary Genitourinary ED: Denies dysuria Musculoskeletal Musculoskeletal: Denies arthralgias Integumentary Denies abscess Neurologic Neurologic: Denies headache(s) Psychiatric Psychiatric: Denies anxiety Endocrine Endocrinology: Denies polydipsia Hematologic/Lymphatic Hematologic/Lymphatic: Denies easy bleeding or easy bruising Allergic/Immunologic Allergic/Immunologic ED: Denies mouth swelling EXAM Physical Exam Narrative Exam Narrative: 82-year-old female no acute distress. Vital signs stable afebrile. Pulse ox 98% on room air no hypoxia. H EENT exam unremarkable. Pupils round reactive light. No obvious trauma to her forehead. There is a small area where there is a inch circular area of skin that may have been picked off. I do not see an abrasion. There is no hematoma. Her face, forehead and scalp are nontender without hematoma nor any lacerations. C-spine nontender. Trachea midline. Lungs clear to auscultation. Heart regular rhythm rate about 60 no murmur. Chest wall and ribs nontender. Abdomen soft nontender. Pelvic girdle intact. Neither hip is tender. There is no shortening or rotation. 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 Has normal dorsi plantarflexion. Has flexion extension of both upper and lower extremities. Upper and lower extremities are nontender without deformity. There is no shortening or rotation. Back and spine are nontender. Neurologically she is awake. She answers limited questions. She does have dementia. No focal motor deficits. Const Vital Signs: 10/31/22 11:00 10/31/22 11:02 10/31/22 11:02 Temperature 97.6 F L 97.6 F L Temperature Source Temporal Temporal Pulse Rate 57 L 57 L 57 L Respiratory Rate 18 18 18 Respiratory Effort Respiratory Depth Respiratory Pattern Blood Pressure 168/48 H 168/48 H 168/48 H Blood Pressure Mean 88 88 88 Pulse Ox 98 98 98 Oxygen Delivery Method Room Air Room Air Room Air 10/31/22 11:03 Temperature 97.6 F L Temperature Source Pulse Rate Respiratory Rate Respiratory Effort Normal Non-Labored Respiratory Depth Normal Respiratory Pattern Normal Blood Pressure Blood Pressure Mean Pulse Ox 98 Oxygen Delivery Method Room Air Positive well nourished and well developed; Negative for cachectic, contractures or unkempt General Appearance ED: well developed and NAD; Negative for unkempt, cachectic or contractures Nutritional Appearance: Negative for cachectic HEENT Reports normocephalic atraumatic; Negative for trauma, contusion, hematoma or tenderness Eyes PERRL and EOMs intact bilaterally General Eye ED: Negative for pale conjunctiva or scleral icterus Neck full ROM, no lymphadenopathy and supple General: Negative for tenderness Chest Wall inspection of chest normal and palpation of chest normal Chest: Negative for other Resp normal respiratory effort, no retractions and clear to auscultation bilaterally Effort and Inspection: Negative for pain with movement Auscultation: Negative for rales, rhonchi or wheezes Cardio regular rate, regular rhythm, S1 normal heart sound, S2 normal heart sound and no murmurs Rate: Negative for bradycardia or tachycardic Rhythm: Negative for abnormal rhythm Bruits: Negative for other GI non-tender, non-distended and no masses Inspection: Negative for abdominal distention Auscultation: normoactive bowel sounds Palpation: soft; Negative for guarding or rebound tenderness present Back/Spine no CVA tenderness General Back: Negative for CVA tenderness Cervical Spine: Negative for cervical spine tenderness Thoracic Spine / Upper Back: Negative for ROM limited or pain with ROM Lumbar Spine / Lower Back: Negative for lumbar spinal tenderness or paraspinal muscle tenderness Neuro No oriented x3, moves all extremities and no focal motor deficits Sensorium / Orientation: alert, oriented to person, orientation impaired and confused; Negative for oriented to place, oriented to time, lethargic or stuporous Motor Exam: strength 5/5 throughout Psych mental status grossly normal and thought process normal Appearance: Negative for unkempt Attitude: No agitated Mood & Affect: Negative for depressed, anxious or tearful Skin General Skin Exam: Negative for other Lesions: no lesions Rashes: no rashes Trauma: Negative for abrasion MDM MDM MDM Narrative Medical decision making narrative: 82-year-old patient with dementia and DNR status fell at her group home. She has no signs of trauma. There is no hematoma or laceration to her scalp. She has no bony tenderness to her upper or lower extremities. No bony tenderness to her chest wall or back. No abdominal pain. I do not think she needs any labs or imaging. She will be discharged back to the extended care facility. History & Record Review Discussion w/independent historian: Patient Additional record(s) reviewed:: Prior inpatient record, Prior outpatient record, Prior ED visit and Prior labs Discharge Plan Triage Chief Complaint: Fall ED Provider: Corbin Akins Dx/Rx/DC Orders Clinical Impression: History of dementia, History of diabetes mellitus, Fall Instructions: ED Fall with Uncertain Cause Prescriptions: No Action carvedilol 6.25 mg tablet PO BID atorvastatin 20 mg tablet PO DAILY Patient Comments: Take 1 tablet by mouthTonce daily. clonazepam 0.5 mg tablet 0.25 mg PO Q6H PRN (Reason: anxiety) albuterol sulfate 90 mcg/actuation HFA aerosol inhaler 1 puff INHALATION PRN divalproex 125 mg capsule, delayed rel sprinkle PO DAILY trazodone 100 mg tablet PO DAILY levetiracetam 1,000 mg tablet PO BID Primary Care Provider: Luana Hernandez Referrals: Luana Hernandez MD [Primary Care Provider] - As Needed Activity Restrictions/Additional Instructions: No obvious injuries. Disposition Disposition: Home, Self Care
[2022-10-31 11:54] VITALS: BP 185/36; PULSE 57; RESP 18; O2SAT 97
--- NOTE | 2022-10-31 11:58 | ED.RN ---
THIS RN CALLED REPORT TO DANG AT 1158. REPORT GIVEN TO SHANON THOMPSON.
--- NOTE | 2022-10-31 12:00 | ED.RN ---
PT SON DENIES HAVING ANY QUESTIONS FOR DR. SIDDIQI PRIOR TO DISCHARGE. PT DISCHARGED IN [facility].
== END 2022-10-31 12:00 | disposition home or self-care (01) ==
LOC: ED 11:33
PROVIDERS: Emergency Provider Emergency Medicine; PCP Family Medicine; Visit Provider Emergency Medicine
DX: F03.90 Unspecified dementia, unspecified severity, without behavioral disturbance, psychotic disturbance, mood disturbance, and anxiety (principal); E11.9 Type 2 diabetes mellitus without complications; I25.10 Atherosclerotic heart disease of native coronary artery without angina pectoris; I10 Essential (primary) hypertension; E78.5 Hyperlipidemia, unspecified; Z79.899 Other long term (current) drug therapy; Z79.84 Long term (current) use of oral hypoglycemic drugs; W19.XXXA Unspecified fall, initial encounter
CPT/HCPCS: 99284

== ENCOUNTER → 2022-11-01 | Outpatient (REF) | payer OTHER, MEDICARE, SELFPAY ==
[2022-11-01 09:30] LABS: Hematocrit 32.1 % (37-47); Hemoglobin 10.1 g/dL (12.0-15.0); Mean Corp Hgb Conc 31.5 g/dL (32-36); Mean Corpuscular Hgb 28.4 pg (27.0-32.0); Mean Corpuscular Volume 90.2 fL (81-99); Mean Platelet Vol. 9.7 fl (6.2-12.0); Platelet Count 213 K/mm3 (150-450); RBC Distribution Width CV 16.2 % (11.6-14.6); RBC Distribution Width SD 54.4 fl (35.1-43.9); Red Blood Count 3.56 M/mm3 (4.2-5.4); White Blood Count 7.9 K/mm3 (4.4-11.0)
[2022-11-01 11:17] LABS: ALB/GLOB Ratio 0.8 RATIO (0.9-2.4); AST(SGOT) 13 U/L (15-37); Alanine Aminotransfer ALT/SGPT 12 U/L (13-56); Alkaline Phosphatase 93 U/L (45-117); Anion Gap 5 (5-15); BUN 25 mg/dL (7-18); BUN/Creat Ratio 18.7 RATIO (10-20); Calcium,Total 8.9 mg/dL (8.5-10.1); Chloride 111 mmol/L (98-107); Creatinine, Serum 1.34 mg/dL (0.55-1.02); EST Glomerular Filtration Rate 40 mL/min (>60); Est Glom Filt Rate - Afr Amer 49 mL/min (>60); Globulin 3.8 g/dL (2.2-4.2); Glucose 165 mg/dL (74-106); Potassium 4.1 mmol/L (3.5-5.1); Protein, Total 6.8 g/dL (6.4-8.2); Sodium Level 141 mmol/L (136-145)
== END ==
LOC: OLS.BROOKB 05:00
PROVIDERS: PCP Family Medicine; Visit Provider Family Medicine
DX: I10 Essential (primary) hypertension (principal); R55 Syncope and collapse
CPT/HCPCS: 36415; 80053; 85027

== ENCOUNTER 2022-11-08 16:59 | Emergency (ER) | payer OTHER, SELFPAY ==
[2022-11-08 17:00] VITALS: BP 154/48; PULSE 72; RESP 14; TEMP 36.6; O2SAT 96; BMI 23.3
--- NOTE | 2022-11-08 17:12 | CT_ITS ---
EXAM: CT HEAD WITHOUT INTRAVENOUS CONTRAST CLINICAL INDICATION: mental status change TECHNIQUE: Multiple axial images were obtained of the head without intravenous contrast. This CT exam was performed using one or more of the following dose reduction techniques: automated exposure control, adjustment of the mA and/or kV according to patient size, and/or use of iterative reconstruction technique. COMPARISON: 10/08/2022 FINDINGS: BRAIN AND EXTRA-AXIAL SPACES: There is enlargement of ventricular system and cortical sulci. There is minimal encephalomalacia in the left cerebellum which is stable. There are ill-defined densities in the basal ganglia bilaterally which may represent physiologic calcifications. There is stable enlargement of the ventricular system and sulci. There is mild encephalomalacia in the high right frontal parietal lobes which is stable. No intra- or extra-axial hemorrhage. No evidence of acute infarct. No intracranial mass or mass effect. There is preservation of the brokc/white matter interface. Basal cisterns are patent. BONES/JOINTS: Unremarkable. No discrete lytic or blastic abnormalities. VASCULATURE: There is a metallic artifact due to a vascular coil. SINUSES: Unremarkable as visualized. Clear. MASTOID AIR CELLS: Unremarkable. Clear. ORBITS: Visualized globes, extraocular muscles, optic nerves and retrobulbar fat appear unremarkable. CT/Brain/Head without Contrast IMPRESSION: 1. No acute intracranial abnormality. There has been no change from the reference. 2. Stable underlying senescent change with small vessel ischemia. 3. 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 Electronically Signed: Ascencion Barrera MD at 18:07 EDT ,
--- NOTE | 2022-11-08 17:13 | EKG12_ITS ---
Test Reason : Blood Pressure : / mmHG Vent. Rate : 061 BPM Atrial Rate : 061 BPM P-R Int : 176 ms QRS Dur : 094 ms QT Int : 464 ms P-R-T Axes : 034 017 115 degrees QTc Int : 467 ms Normal sinus rhythm Minimal voltage criteria for LVH, may be normal variant ( Sokolow-Fabian ) ST & T wave abnormality, consider anterolateral ischemia Abnormal ECG Confirmed by AJIT COCHRAN, DEMETRI ([id number]), telegraph editor JOANN VALDERRAMA ([id number]) on 11/27/2022 2:07:41 PM Referred By: Confirmed By:YAHIR FONG MD
--- NOTE | 2022-11-08 17:14 | EX.ED.DYSGE1 ---
HPI History of Present Illness Chief Complaint: Alt LOC Detail of Chief Complaint: Mental status change Informant: patient and SNF Narrative Narrative: Patient presents to the emergency department via EMS from extended-care facility with memory unit. Sent in because 2 hours ago they noticed a change in her mental status. Patient apparently was screaming and stripping. Nursing staff was concerned about possible UTI. Currently in the emergency department patient denies any complaints of head or neck pain. She denies chest pain. She denies abdominal pain. She denies dysuria. [facility] Medical History Alzheimer disease Aneurysm Atherosclerotic heart disease Bradycardia CAD (coronary artery disease) DMII (diabetes mellitus, type 2) Dysphagia following other cerebrovascular disease HLD (hyperlipidemia) HTN (hypertension) Injury of kidney Restlessness and agitation Right bundle branch block (RBBB) Seizures Home Medications albuterol sulfate 90 mcg/actuation aerosol inhaler 1 puff inhalation PRN SOB 10/08/22 [History Last Taken Unknown] atorvastatin 20 mg tablet 20 mg PO DAILY 10/08/22 [History Last Taken Unknown] carvedilol 6.25 mg tablet 6.25 mg PO BID 10/08/22 [History Last Taken Unknown] clonazepam 0.5 mg tablet 0.25 mg PO Q6H PRN anxiety 10/08/22 [History Last Taken Unknown] divalproex 125 mg capsule,delayed release sprinkle 125 mg PO DAILY 10/08/22 [History Last Taken Unknown] levetiracetam 1,000 mg tablet 1,000 mg PO BID 10/08/22 [History Last Taken Unknown] trazodone 100 mg tablet 100 mg PO DAILY 10/08/22 [History Last Taken Unknown] metformin 500 mg tablet,extended release 24 hr 500 mg PO QPM 10/31/22 [History Last Taken Unknown] cyanocobalamin (vitamin B-12) 100 mcg tablet (Vitamin B-12) 100 mcg PO DAILY 11/08/22 [History Last Taken Unknown] Allergy/AdvReac Type Severity Reaction Status Date / Time celecoxib [From Celebrex] Allergy PT UNABLE Verified 11/08/22 17:02 TO RESPOND-NEEDS F/U ezetimibe [From Zetia] Allergy PT UNSURE Verified 11/08/22 17:02 OF REACTION hydralazine Allergy PT UNABLE Verified 11/08/22 17:02 TO RESPOND-NEEDS F/U Social History Smoking Status: Current some day smoker tobacco type: cigarettes ROS ROS ED ROS Narrative Patient very poor historian due to history of dementia Review of Systems ROS Unobtainable: due to mental condition and other Constitutional Constitutional ED: Reports lethargy; Denies chills, fever(s), sweats or weight loss Eyes Eyes: Denies blurry vision, change in vision or diplopia ENT ENT ED: Denies rhinorrhea or sore throat Cardiovascular Cardiovascular: Denies chest pain, orthopnea or racing heartbeat Respiratory/Chest Respiratory/Chest: Denies cough, dyspnea, dyspnea on exertion, orthopnea or sputum Gastrointestinal Gastrointestinal: Denies abdominal pain, diarrhea, nausea or vomiting Genitourinary Genitourinary ED: Denies dysuria, hematuria or urinary frequency Musculoskeletal Musculoskeletal: Denies arthralgias, back pain, myalgias or neck pain Integumentary Denies abscess, Abrasions or rash Neurologic Neurologic: Denies headache(s) or weakness Psychiatric Psychiatric: Denies anxiety, depression or suicidal thoughts Endocrine Endocrinology: Denies polydipsia, polyphagia or polyuria Hematologic/Lymphatic Hematologic/Lymphatic: Denies easy bleeding, easy bruising or lymphadenopathy Allergic/Immunologic Allergic/Immunologic ED: Denies mouth swelling, tongue swelling or urticaria EXAM Physical Exam Const Vital Signs: 11/08/22 17:00 11/08/22 19:00 Temperature 97.9 F Temperature Source Temporal Pulse Rate 72 Respiratory Rate 14 16 Blood Pressure 154/48 H Blood Pressure Mean 83 Pulse Ox 96 Oxygen Delivery Method Room Air Positive well nourished and well developed General Appearance ED: well developed and NAD HEENT Reports TM's clear and moist mucous membranes normocephalic and atraumatic; Negative for trauma or tenderness Tympanic Membrane ED: Yes TM's clear Eyes PERRL and EOMs intact bilaterally General Eye ED: Negative for pale conjunctiva or scleral icterus Neck no lymphadenopathy, supple and no JVD General: Negative for tenderness Chest Wall inspection of chest normal and palpation of chest normal Chest: Negative for tenderness Resp normal respiratory effort and clear to auscultation bilaterally Effort and Inspection: Negative for respiratory distress or pain with movement Auscultation: Negative for rhonchi, wheezes or diminished lung sounds Cardio regular rate, regular rhythm, S1 normal heart sound, S2 normal heart sound and no murmurs Peripheral Pulses: pulses 2+ throughout GI normal to inspection, nondistended, normoactive bowel sounds, soft to palpation, non-tender, non-distended and no masses Back/Spine no CVA tenderness and no thoracic nor lumbar tenderness Extremity Extremity Narrative: +2 edema both lower extremities General Extremety ED: Yes edema General Extremity: edema Neuro oriented x3, CN's II-XII intact bilaterally, no sensory deficits noted and gait normal Sensorium / Orientation: awake, alert, oriented to person, oriented to place and oriented to time Motor Exam: strength 5/5 throughout and strength abnormal Psych mental status grossly normal Skin no rashes or lesions noted and no wounds MDM MDM MDM Narrative Medical decision making narrative: Patient presents from memory unit at [facility]. Patient apparently was acting out and screaming and stripping her clothes off. skilled nursing was worried about possibility of a UTI or other etiology. On arrival patient is without complaints and is a poor historian but appropriate otherwise following commands and polite. IV line established. CBC with differential count of 6.4 with a hemoglobin of 7.7 and platelet count of 212. Chemistries unremarkable. BUN 36 and creatinine 1.43. Troponin was normal at 24. Patient's hemoglobin within the last week was 10. Unclear the reason for the drop. I did do a rectal exam she had brown stool that was Hemoccult negative. CT scan of the brain without contrast was unremarkable. I did discuss case with Dr. Gilmore who asked that we have the retirement repeat CBC within next 24 hours to follow her H&H. Clinically she looks well. I did send off a urine culture and the results of which will be pending Lab Data Attestation: I reviewed the patient's lab results. Labs: Laboratory Results - last 24 hr 11/08/22 11/08/22 17:24 18:11 WBC 6.4 RBC 2.67 L Hgb 7.7 L Hct 24.8 L MCV 92.9 MCH 28.8 MCHC 31.0 L RDW Std Deviation 57.7 H RDW Coeff of Theodora 16.8 H Plt Count 212 MPV 9.6 Immature Gran % (Auto) 0.200 Neut % (Auto) 62.1 Lymph % (Auto) 18.7 L Bullock % (Auto) 16.3 H Eos % (Auto) 2.2 Baso % (Auto) 0.5 Absolute Neuts (auto) 4.0 Absolute Lymphs (auto) 1.19 Nucleated RBC % 0 Sodium 140 Potassium 5.1 Chloride 110 H Carbon Dioxide 26.0 Anion Gap 4 L BUN 36 H Creatinine 1.43 H Estim Creat Clear Calc 24.82 Est GFR (MDRD) Af Amer 45 L Est GFR (MDRD) Non-Af 38 L BUN/Creatinine Ratio 25.2 H Glucose 128 H Lactic Acid 0.7 Calcium 8.3 L Troponin I High Sens 24 Urine Color Yellow Urine Clarity Clear Urine pH 7.0 Ur Specific Chelsea 1.010 Urine Protein 100 H Urine Glucose (UA) Normal Urine Ketones 5 H Urine Occult Blood Negative Urine Nitrite Positive H Urine Bilirubin Negative Urine Urobilinogen Normal Ur Leukocyte Esterase 25 H Urine RBC 0 SEEN Urine WBC 0-5 SEEN Ur Squamous Epith Cells 0 SEEN Urine Bacteria 3+ Urine Mucus 0 SEEN Radiography Diagnostic Testing: Clinical Impression(s) from Imaging Studies Brain CT 11/08/22 17:12 IMPRESSION: 1. No acute intracranial abnormality. There has been no change from the reference. 2. Stable underlying senescent change with small vessel ischemia. 3. 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 Electronically Signed: Ascencion Barrera MD at 18:07 EDT , EKG Initial EKG: Attestation: I personally reviewed and interpreted this EKG as follows: Comments: Sinus rhythm with a rate of [address] changes. Prior EKG tracings: not available for review Discharge Plan Triage Chief Complaint: Alt LOC ED Provider: Flavio Kendall Dx/Rx/DC Orders Clinical Impression: Altered mental status, Anemia Instructions: ED ALOC Prescriptions: No Action carvedilol 6.25 mg tablet 6.25 mg PO BID atorvastatin 20 mg tablet 20 mg PO DAILY Patient Comments: Take 1 tablet by mouthTonce daily. clonazepam 0.5 mg tablet 0.25 mg PO Q6H PRN (Reason: anxiety) albuterol sulfate 90 mcg/actuation HFA aerosol inhaler 1 puff INHALATION PRN divalproex 125 mg capsule, delayed rel sprinkle 125 mg PO DAILY trazodone 100 mg tablet 100 mg PO DAILY Hold Instructions: Pt has been DC'd levetiracetam 1,000 mg tablet 1,000 mg PO BID metformin 500 mg tablet extended release 24 hr 500 mg PO QPM cyanocobalamin (vitamin B-12) [Vitamin B-12] 100 mcg tablet 100 mcg PO DAILY Primary Care Provider: Luana Hernandez Referrals: Luana Hernandez MD [Primary Care Provider] - 1-2 Days if not improving Activity Restrictions/Additional Instructions: Please ask Dr. Hernandez to order CBC with differential within the next 24 hours to follow-up on hemoglobin of 7.7. Disposition Disposition: Home, Self Care Discharge Date/Time: 11/08/22 21:19
--- NOTE | 2022-11-08 17:18 | NURSING ---
NO OLD EKGS
[2022-11-08] MEDS: 0.9% Normal Saline 1,000 ML 150 ML IV (17:25)
[2022-11-08 17:30] LABS: Absolute Lymphocyte Count 1.19 X10^3/uL (0.83-4.51); Basophil# 0.03 X10^3/uL; Basophil% 0.5 % (0-1); Eosinophil# 0.14 X10^3/uL; Eosinophils% 2.2 % (0-5); Hematocrit 24.8 % (37-47); Hemoglobin 7.7 g/dL (12.0-15.0); Lymphocyte # 1.19 X10^3/ul (0.83-4.51); Lymphocyte % 18.7 % (19-41); Mean Corpuscular Hgb 28.8 pg (27.0-32.0); Mean Corpuscular Volume 92.9 fL (81-99); Mean Platelet Vol. 9.6 fl (6.2-12.0); Monocyte# 1.04 X10^3/uL; Monocyte% 16.3 % (0-10); NRBC Flagged by Analyzer 0 % (0-5); Neutrophil # 3.96 X10^3/uL (2.7-7.7); Neutrophil % 62.1 % (47-70); Platelet Count 212 K/mm3 (150-450); RBC Distribution Width CV 16.8 % (11.6-14.6); RBC Distribution Width SD 57.7 fl (35.1-43.9); Red Blood Count 2.67 M/mm3 (4.2-5.4); White Blood Count 6.4 K/mm3 (4.4-11.0)
[2022-11-08 17:51] LABS: Anion Gap 4 (5-15); BUN 36 mg/dL (7-18); BUN/Creat Ratio 25.2 RATIO (10-20); Calcium,Total 8.3 mg/dL (8.5-10.1); Chloride 110 mmol/L (98-107); Creatinine, Serum 1.43 mg/dL (0.55-1.02); EST Glomerular Filtration Rate 38 mL/min (>60); Est Glom Filt Rate - Afr Amer 45 mL/min (>60); Estimated Creatinine Clearance 24.82 ml/min; Glucose 128 mg/dL (74-106); Potassium 5.1 mmol/L (3.5-5.1); Sodium Level 140 mmol/L (136-145); Troponin-I HS 24 pg/mL (3.0-54.0)
[2022-11-08 17:55] LABS: Lactic Acid 0.7 mmol/L (0.4-1.9)
[2022-11-08 18:22] LABS: Mucous, Urine 0 SEEN /hpf (<or=2+); Red Blood Cells-Urine 0 SEEN /hpf (0-5); Squamous Epithelial Cells - UA 0 SEEN /hpf (5-10)
[2022-11-08 18:26] LABS: Color, Urine Yellow (Yellow); Glucose, Dipstick Normal (Normal); Ketone-Dipstick 5 mg/dl (Negative); Leukocyte Esterase-Dipstick 25 /ul (Negative); Nitrite-Dipstick Positive (Negative); Occult Blood-Urine Negative /ul (Negative); Protein-Dipstick 100 mg/dl (Negative); Urine Bilirubin Dipstick Negative (Negative); Urine Clarity Clear (Clear); Urine Urobilinogen Normal (Normal)
[2022-11-08 18:35] LABS: Bacteria 3+ /hpf (None Seen); White Blood Cells 0-5 SEEN /hpf (0-5)
[2022-11-08 19:00] VITALS: RESP 16
== END 2022-11-08 21:19 | disposition home or self-care (01) ==
PROVIDERS: Emergency Provider Emergency Medicine; PCP Family Medicine; Visit Provider Emergency Medicine
DX: R41.82 Altered mental status, unspecified (principal); D64.9 Anemia, unspecified; I25.10 Atherosclerotic heart disease of native coronary artery without angina pectoris; F17.210 Nicotine dependence, cigarettes, uncomplicated
CPT/HCPCS: 70450; 80048; 81001; 82274; 83605; 84484; 85025; 87077; 87086; 87088; 87186; 93005; 99284; J7030; A4216

== ENCOUNTER → 2022-11-09 | Outpatient (REF) | payer OTHER, SELFPAY ==
[2022-11-09 11:41] LABS: Absolute Lymphocyte Count 0.84 X10^3/uL (0.83-4.51); Absolute Neutrophil Count 5.6 X10^3/uL (2.0-7.7); Basophil# 0.03 X10^3/uL; Basophil% 0.4 % (0-1); Eosinophil# 0.05 X10^3/uL; Eosinophils% 0.7 % (0-5); Hematocrit 24.5 % (37-47); Hemoglobin 7.8 g/dL (12.0-15.0); Lymphocyte # 0.84 X10^3/ul (0.83-4.51); Lymphocyte % 11.5 % (19-41); Mean Corp Hgb Conc 31.8 g/dL (32-36); Mean Corpuscular Hgb 29.9 pg (27.0-32.0); Mean Corpuscular Volume 93.9 fL (81-99); Mean Platelet Vol. 9.3 fl (6.2-12.0); Monocyte# 0.81 X10^3/uL; Monocyte% 11.1 % (0-10); NRBC Flagged by Analyzer 0 % (0-5); Neutrophil # 5.56 X10^3/uL (2.7-7.7); Neutrophil % 75.9 % (47-70); Platelet Count 221 K/mm3 (150-450); RBC Distribution Width CV 16.6 % (11.6-14.6); RBC Distribution Width SD 57.3 fl (35.1-43.9); Red Blood Count 2.61 M/mm3 (4.2-5.4); White Blood Count 7.3 K/mm3 (4.4-11.0)
== END ==
LOC: OLS.BROOKB 11:25
PROVIDERS: PCP Family Medicine; Visit Provider Family Medicine
DX: D64.9 Anemia, unspecified (principal)
CPT/HCPCS: 36415; 85025

== ENCOUNTER → 2022-11-13 | Outpatient (CLI) | payer OTHER, SELFPAY | END | disposition home or self-care (01) | PROVIDERS: PCP Family Medicine; Visit Provider Family Medicine | DX: D64.9 Anemia, unspecified (principal) | CPT/HCPCS: 86850; 86900; 86901; 86920; 86922 ==

== ENCOUNTER 2022-11-15 03:58 | Emergency (ER) | payer OTHER, SELFPAY ==
[2022-11-15 03:59] VITALS: BP 101/76; PULSE 71; RESP 20; TEMP 37; O2SAT 95; BMI 23.1
--- NOTE | 2022-11-15 04:02 | CT_ITS ---
EXAM: CT HEAD WITHOUT INTRAVENOUS CONTRAST CLINICAL INDICATION: head injury TECHNIQUE: Multiple axial images were obtained of the head without intravenous contrast. This CT exam was performed using one or more of the following dose reduction techniques: automated exposure control, adjustment of the mA and/or kV according to patient size, and/or use of iterative reconstruction technique. RADIATION DOSE: CTDIvol = 44.99 mGy, DLP = 812.98 mGy-cm COMPARISON: 11/08/2022. FINDINGS: BRAIN AND EXTRA-AXIAL SPACES: Moderate generalized atrophy. Moderate low density bilaterally in the deep white matter. 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 No intra- or extra-axial hemorrhage. No intracranial mass or mass effect. No hydrocephalus. Basal cisterns are patent. BONES/JOINTS: Unremarkable. No discrete lytic or blastic abnormalities. SOFT TISSUES: Moderate left parietal scalp hematoma. VASCULATURE: Aneurysm coils in the region of the anterior communicating artery. SINUSES: Unremarkable as visualized. Clear. MASTOID AIR CELLS: Unremarkable. Clear. ORBITS: Visualized globes, extraocular muscles, optic nerves and retrobulbar fat appear unremarkable. CT/Brain/Head without Contrast IMPRESSION: 1. Moderate left parietal scalp hematoma. 2. Moderate generalized atrophy. Moderate low density bilaterally in the deep white matter. This likely represents chronic small vessel ischemic changes in the deep white matter.. 3. 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 4. No acute intracranial abnormality. Electronically Signed: Jay Santoyo MD at 4:38 EDT ,
--- NOTE | 2022-11-15 04:03 | CT_ITS ---
EXAM: CT CERVICAL SPINE WITHOUT INTRAVENOUS CONTRAST CLINICAL INDICATION: injury TECHNIQUE: Helically acquired images were obtained of the cervical spine without intravenous contrast. 2D reformatted images were reviewed. This CT exam was performed using one or more of the following dose reduction techniques: automated exposure control, adjustment of the mA and/or kV according to patient size, and/or use of iterative reconstruction technique. RADIATION DOSE: CTDIvol = 13.65 mGy, DLP = 280.33 mGy-cm COMPARISON: 10/08/2022. FINDINGS: VERTEBRAE: Moderate multilevel bilateral cervical vertebral facet arthropathy. No fracture. No traumatic subluxation. No discrete lytic or blastic abnormality. Normal alignment. Normal craniocervical junction and cervicothoracic junction. DISCS/SPINAL CANAL/NEURAL FORAMINA: Moderate multilevel cervical degenerative disc disease. No critical stenosis. SOFT TISSUES: Unremarkable. No prevertebral soft tissue swelling. LYMPH NODES: Unremarkable. No cervical adenopathy. THYROID: Mild diffuse thyromegaly. LUNG APICES: Unremarkable as visualized. Clear. CT/Spine Cervical without Contras IMPRESSION: 1. Moderate cervical degenerative changes. No acute fractures or subluxations. 2. Mild diffuse thyromegaly. Electronically Signed: Jay Santoyo MD at 4:40 EDT ,
--- NOTE | 2022-11-15 04:10 | EDS_ITS ---
HPI History of Present Illness Chief Complaint: Fall Informant: patient, EMS and SNF Narrative Narrative: 82-year-old female presenting to the emergency room following a fall. Unknown if this was a witnessed fall or not. EMS states that she was in the dining are a. Reports that she has blood matting the hair on the back of her head. Patient is alert and oriented. No reported loss of consciousness. Not on blood thinners. DNR Comfort Care arrest [facility] Medical History Alzheimer disease Aneurysm Atherosclerotic heart disease Bradycardia CAD (coronary artery disease) DMII (diabetes mellitus, type 2) Dysphagia following other cerebrovascular disease HLD (hyperlipidemia) HTN (hypertension) Injury of kidney Restlessness and agitation Right bundle branch block (RBBB) Seizures Home Medications albuterol sulfate 90 mcg/actuation aerosol inhaler 1 puff inhalation PRN SOB 10/08/22 [History Last Taken Unknown] atorvastatin 20 mg tablet 20 mg PO DAILY 10/08/22 [History Last Taken Unknown] carvedilol 6.25 mg tablet 6.25 mg PO BID 10/08/22 [History Last Taken Unknown] clonazepam 0.5 mg tablet 0.25 mg PO Q6H PRN anxiety 10/08/22 [History Last Taken Unknown] divalproex 125 mg capsule,delayed release sprinkle 125 mg PO DAILY 10/08/22 [History Last Taken Unknown] levetiracetam 1,000 mg tablet 1,000 mg PO BID 10/08/22 [History Last Taken Unknown] trazodone 100 mg tablet 100 mg PO DAILY 10/08/22 [History Last Taken Unknown] metformin 500 mg tablet,extended release 24 hr 500 mg PO QPM 10/31/22 [History Last Taken Unknown] cyanocobalamin (vitamin B-12) 100 mcg tablet (Vitamin B-12) 100 mcg PO DAILY 11/08/22 [History Last Taken Unknown] Allergy/AdvReac Type Severity Reaction Status Date / Time celecoxib [From Celebrex] Allergy PT UNABLE Verified 11/08/22 17:02 TO RESPOND-NEEDS F/U ezetimibe [From Zetia] Allergy PT UNSURE Verified 11/08/22 17:02 OF REACTION hydralazine Allergy PT UNABLE Verified 11/08/22 17:02 TO RESPOND-NEEDS F/U Social History (Updated 11/15/22 @ 04:[address] Elbert Alcala, DO) Smoking Status: Current some day smoker tobacco type: cigarettes substance use type: does not use ROS ROS ED Review of Systems ROS Unobtainable: due to mental status EXAM Physical Exam Const Vital Signs: 11/15/22 03:59 Temperature 98.6 F Temperature Source Temporal Pulse Rate 71 Respiratory Rate 20 H Blood Pressure 101/76 Blood Pressure Mean 84 Pulse Ox 95 Oxygen Delivery Method Room Air Positive well nourished and well developed General Appearance ED: well developed HEENT Reports normocephalic and moist mucous membranes HEENT Narrative: There is an area of dried matted blood in the left occiput. There is an area of hematoma and abrasion but no laceration. Eyes PERRL and EOMs intact bilaterally Neck no lymphadenopathy, supple and no JVD Resp normal respiratory effort and clear to auscultation bilaterally Cardio regular rate, regular rhythm and no murmurs GI normal to inspection, nondistended, normoactive bowel sounds and non-tender Palpation: soft Back/Spine no CVA tenderness and normal ROM Extremity normal to inspection General Extremety ED: Negative for edema General Extremity: Negative for edema Neuro CN's II-XII intact bilaterally Sensorium / Orientation: alert and orientation impaired Motor Exam: strength 5/5 throughout Psych mental status grossly normal Mood & Affect: Negative for depressed or tearful Skin no rashes or lesions noted and no wounds MDM MDM MDM Narrative Medical decision making narrative: Patient has dementia. DNR Comfort Care arrest. There does not appear to be anything for us to suture. Given the evidence of head injury CT of the head and cervical spine were obtained. These were negative for intracranial hemorrhage or fracture. Would recommend local wound care Tylenol for pain ice for swelling. Return if worsening or concerns Discharge Plan Triage Chief Complaint: Fall ED Provider: Elbert Alcala Dx/Rx/DC Orders Prescriptions: No Action carvedilol 6.25 mg tablet 6.25 mg PO BID atorvastatin 20 mg tablet 20 mg PO DAILY Patient Comments: Take 1 tablet by mouthTonce daily. clonazepam 0.5 mg tablet 0.25 mg PO Q6H PRN (Reason: anxiety) albuterol sulfate 90 mcg/actuation HFA aerosol inhaler 1 puff INHALATION PRN divalproex 125 mg capsule, delayed rel sprinkle 125 mg PO DAILY trazodone 100 mg tablet 100 mg PO DAILY Hold Instructions: Pt has been DC'd levetiracetam 1,000 mg tablet 1,000 mg PO BID metformin 500 mg tablet extended release 24 hr 500 mg PO QPM cyanocobalamin (vitamin B-12) [Vitamin B-12] 100 mcg tablet 100 mcg PO DAILY Primary Care Provider: Luana Hernandez Referrals: Luana Hernandez MD [Primary Care Provider] -
--- NOTE | 2022-11-15 07:14 | ED.RN ---
Report to [employer].
== END 2022-11-15 07:17 | disposition skilled nursing facility (03) ==
PROVIDERS: Emergency Provider Emergency Medicine; PCP Family Medicine; Visit Provider Emergency Medicine
DX: S00.03XA Contusion of scalp, initial encounter (principal); F02.80 Dementia in other diseases classified elsewhere, unspecified severity, without behavioral disturbance, psychotic disturbance, mood disturbance, and anxiety; I25.10 Atherosclerotic heart disease of native coronary artery without angina pectoris; F17.210 Nicotine dependence, cigarettes, uncomplicated; W19.XXXA Unspecified fall, initial encounter
CPT/HCPCS: 70450; 72125; 99284

== ENCOUNTER 2022-11-15 08:19 | Outpatient (CLI) | payer OTHER, SELFPAY ==
[2022-11-15 08:53] VITALS: BP 166/37; PULSE 55; RESP 16; TEMP 36.2; O2SAT 98
[2022-11-15] MEDS: 0.9% NaCl Peripheral Flush Adult/Peds IV (09:01)
[2022-11-15 09:21] VITALS: BP 160/30; PULSE 53; RESP 16; TEMP 36; O2SAT 97
[2022-11-15 10:21] VITALS: BP 157/42; PULSE 55; RESP 18; TEMP 36.2; O2SAT 99
[2022-11-15 13:16] VITALS: BP 155/58; PULSE 57; RESP 16; TEMP 36.6; O2SAT 100
== END 2022-11-15 08:20 | disposition home or self-care (01) ==
LOC: MEDOUTP 08:21
PROVIDERS: PCP Family Medicine; Referring Provider Family Medicine; Visit Provider Family Medicine
DX: D64.9 Anemia, unspecified (principal)
CPT/HCPCS: 36430; 86850; 86900; 86901; 86920; 86922; J7040; P9016; A4216

== ENCOUNTER → 2022-11-20 | Outpatient (REF) | payer OTHER, SELFPAY | LOC: OLS.BROOKB 08:08 | PROVIDERS: PCP Family Medicine; Visit Provider Family Medicine | DX: K92.2 Gastrointestinal hemorrhage, unspecified (principal) | CPT/HCPCS: 82274 ==

== ENCOUNTER → 2022-11-28 | Outpatient (CLI) | payer OTHER, SELFPAY ==
[2022-11-28 17:54] LABS: Absolute Lymphocyte Count 0.77 X10^3/uL (0.83-4.51); Absolute Neutrophil Count 3.7 X10^3/uL (2.0-7.7); Basophil# 0.04 X10^3/uL; Basophil% 0.8 % (0-1); Eosinophil# 0.05 X10^3/uL; Hemoglobin 11.4 g/dL (12.0-15.0); Lymphocyte # 0.77 X10^3/ul (0.83-4.51); Lymphocyte % 14.8 % (19-41); Mean Corp Hgb Conc 31.7 g/dL (32-36); Mean Corpuscular Hgb 28.9 pg (27.0-32.0); Mean Corpuscular Volume 91.1 fL (81-99); Mean Platelet Vol. 9.7 fl (6.2-12.0); Monocyte# 0.67 X10^3/uL; Monocyte% 12.9 % (0-10); NRBC Flagged by Analyzer 0 % (0-5); Neutrophil # 3.66 X10^3/uL (2.7-7.7); Neutrophil % 70.5 % (47-70); Platelet Count 168 K/mm3 (150-450); RBC Distribution Width CV 15.3 % (11.6-14.6); Red Blood Count 3.95 M/mm3 (4.2-5.4); White Blood Count 5.2 K/mm3 (4.4-11.0)
[2022-11-28 18:09] LABS: Vitamin D,25 Hydroxy 57.4 ng/mL
[2022-11-28 18:12] LABS: ALB/GLOB Ratio 0.8 RATIO (0.9-2.4); AST(SGOT) 16 U/L (15-37); Alanine Aminotransfer ALT/SGPT 16 U/L (13-56); Albumin, Serum 2.9 g/dL (3.2-5.0); Alkaline Phosphatase 117 U/L (45-117); Anion Gap 5 (5-15); BUN 25 mg/dL (7-18); BUN/Creat Ratio 18.4 RATIO (10-20); Calcium,Total 8.5 mg/dL (8.5-10.1); Chloride 109 mmol/L (98-107); Cholesterol 126 mg/dL (200); Creatinine, Serum 1.36 mg/dL (0.55-1.02); EST Glomerular Filtration Rate 40 mL/min (>60); Est Glom Filt Rate - Afr Amer 48 mL/min (>60); Globulin 3.8 g/dL (2.2-4.2); Glucose 187 mg/dL (74-106); High Density Lipoprotein 53 mg/dL; Potassium 4.5 mmol/L (3.5-5.1); Protein, Total 6.7 g/dL (6.4-8.2); Sodium Level 141 mmol/L (136-145); Thyroid Stim Hormone (TSH) 0.96 uIU/mL (0.358-3.74); Triglycerides 109 mg/dL; Very Low Density Lipoprotein 22 mg/dL (5-40)
== END | disposition home or self-care (01) ==
LOC: POLAB3 16:15
PROVIDERS: PCP Family Medicine; Visit Provider Family Medicine Geriatric Medicine
DX: E11.65 Type 2 diabetes mellitus with hyperglycemia (principal); G40.909 Epilepsy, unspecified, not intractable, without status epilepticus
CPT/HCPCS: 36415; 80053; 80061; 82306; 84443; 85025

== ENCOUNTER 2022-11-29 19:39 | Emergency (ER) | payer OTHER, SELFPAY ==
[2022-11-29 19:41] VITALS: BP 196/59; PULSE 58; RESP 14; TEMP 36.8; O2SAT 95; BMI 23.3
[2022-11-29 19:44] VITALS: BP 197/57; PULSE 57; RESP 14; O2SAT 94
--- NOTE | 2022-11-29 20:19 | ED.VIS.FALL ---
HPI HPI - Fall History of Present Illness Chief Complaint: Fall Detail of Chief Complaint: Fell at shelter. Left scalp laceration. Informant: parent, EMS and SNF Occured/Mechanism Occurred: Today Mechanism/Context: Yes same level fall Pain/Injury Pain Location: head Current Severity: Mild Maximum Severity: Mild Associated Symptoms Associated Symptoms: Negative for Parasthesias, Weakness, Loss of function, Inability to ambulate, Loss of consciousness or Amnesia Narrative Narrative: 82-year-old female has a history of dementia and a history of a seizure disorder. She is a very limited informant. Her son is here with her. Reportedly she had a fall at her extended care facility. She has been there since August. She is not on any blood thinners. She has had 2 CAT scans of her head recently on November 08 and November 15. He is comfortable with us not obtaining another CAT scan. With her dementia he would not have her undergo surgery if she had an intracranial bleed. Tetanus Immunization: Unknown Prior similar symptoms: Yes Recent Illness/Hospitalization: No PFSH PFSH Medical History Alzheimer disease Aneurysm Atherosclerotic heart disease Bradycardia CAD (coronary artery disease) DMII (diabetes mellitus, type 2) Dysphagia following other cerebrovascular disease HLD (hyperlipidemia) HTN (hypertension) Injury of kidney Restlessness and agitation Right bundle branch block (RBBB) Seizures Home Medications albuterol sulfate 90 mcg/actuation aerosol inhaler 1 puff inhalation PRN SOB 10/08/22 [History Last Taken Unknown] atorvastatin 20 mg tablet 20 mg PO DAILY 10/08/22 [History Last Taken Unknown] carvedilol 6.25 mg tablet 6.25 mg PO BID 10/08/22 [History Last Taken Unknown] clonazepam 0.5 mg tablet 0.25 mg PO Q6H PRN anxiety 10/08/22 [History Last Taken Unknown] divalproex 125 mg capsule,delayed release sprinkle 125 mg PO DAILY 10/08/22 [History Last Taken Unknown] levetiracetam 1,000 mg tablet 1,000 mg PO BID 10/08/22 [History Last Taken Unknown] trazodone 100 mg tablet 100 mg PO DAILY 10/08/22 [History Last Taken Unknown] metformin 500 mg tablet,extended release 24 hr 500 mg PO QPM 10/31/22 [History Last Taken Unknown] cyanocobalamin (vitamin B-12) 100 mcg tablet (Vitamin B-12) 100 mcg PO DAILY 11/08/22 [History Last Taken Unknown] Allergy/AdvReac Type Severity Reaction Status Date / Time celecoxib [From Celebrex] Allergy PT UNABLE Verified 11/08/22 17:02 TO RESPOND-NEEDS F/U ezetimibe [From Zetia] Allergy PT UNSURE Verified 11/08/22 17:02 OF REACTION hydralazine Allergy PT UNABLE Verified 11/08/22 17:02 TO RESPOND-NEEDS F/U Social History Smoking Status: Current some day smoker tobacco type: cigarettes substance use type: does not use ROS ROS ED ROS Narrative Limited informant due to her dementia. No recent illness per her son. Review of Systems ROS Unobtainable: due to mental status EXAM Physical Exam Narrative Exam Narrative: Well-appearing 82-year-old female. Vital signs stable afebrile. H EENT exam dry reactive light. No facial trauma. She is a very minor 1 cm superficial laceration left lateral scalp. I will have the nurses cleaned up to determine if we need to suture repaired or not. Currently there is no active bleeding. There is no significant hematoma or tenderness. Rest of the scalp is nontender without hematoma. C-spine nontender. Trachea midline. Lungs clear to auscultation. Heart regular rhythm rate about 60. Chest wall and ribs nontender. Abdomen soft nontender. Pelvic girdle intact. Hips nontender. No shortening or rotation. Knees and ankles nontender. Upper extremities nontender. Neurologically she is awake. Her eyes are open. She answers questions. She is chronically confused from her dementia. She is her baseline. Son states this is actually better than she normally looks. Const Vital Signs: 11/29/22 19:41 11/29/22 19:44 11/29/22 19:46 Temperature 98.2 F Temperature Source Oral Pulse Rate 58 L 57 L Respiratory Rate 14 14 Respiratory Effort Normal Non-Labored Respiratory Pattern Normal Blood Pressure 196/59 H 197/57 H Blood Pressure Mean 104 103 Pulse Ox 95 94 Oxygen Delivery Method Room Air Room Air Positive well nourished and well developed; Negative for obese, cachectic, contractures or unkempt General Appearance ED: well developed and NAD; Negative for unkempt, cachectic or contractures Nutritional Appearance: Negative for cachectic or obese HEENT Reports normocephalic HEENT Narrative: Superficial laceration left lateral scalp. trauma; Negative for atraumatic Eyes PERRL and EOMs intact bilaterally General Eye ED: Negative for pale conjunctiva or scleral icterus Neck full ROM, no lymphadenopathy and supple General: Negative for tenderness Chest Wall inspection of chest normal and palpation of chest normal Chest: Negative for other Resp normal respiratory effort, no retractions and clear to auscultation bilaterally Effort and Inspection: Negative for pain with movement Auscultation: Negative for rales, rhonchi or wheezes Cardio regular rate, regular rhythm, S1 normal heart sound and S2 normal heart sound Rate: Negative for bradycardia or tachycardic Rhythm: Negative for abnormal rhythm Bruits: Negative for other GI non-tender, non-distended and no masses Inspection: Negative for abdominal distention Auscultation: normoactive bowel sounds Palpation: soft; Negative for guarding or rebound tenderness present Back/Spine no CVA tenderness General Back: Negative for CVA tenderness Cervical Spine: Negative for cervical spine tenderness Thoracic Spine / Upper Back: Negative for ROM limited Lumbar Spine / Lower Back: Negative for lumbar spinal tenderness or paraspinal muscle tenderness Neuro No oriented x3, moves all extremities and no focal motor deficits Sensorium / Orientation: alert, oriented to person and oriented to time; Negative for oriented to place Motor Exam: strength 5/5 throughout Psych mental status grossly normal and thought process normal Appearance: Negative for unkempt Attitude: No agitated Mood & Affect: Negative for depressed, anxious or tearful Skin Skin Narrative: [id number] superficial scalp laceration. General Skin Exam: Negative for other Lesions: no lesions Rashes: no rashes Trauma: laceration; Negative for abrasion MDM MDM MDM Narrative Medical decision making narrative: 10-year-old female with dementia and extended-care facility. History of falls. 2 CAT scans in the last month. Discussed with her son at bedside. He is comfortable with no CAT scan being obtained because due to her dementia he would not have her undergo intracranial surgery if she had a head bleed. We will clean her left scalp wound determine if it needs any repair. We will try to determine if her tetanus is up-to-date. I do not think she needs any other labs or imaging. Repeat exam patient doing well at 10:35 PM. She about a 1 inch laceration left lateral scalp. It was cleaned with Shur-Clens washed and irrigated with saline. Explored. Involve the skin and subcu tissue. Local anesthetized with lidocaine with epinephrine. Closed using 3 simple erupted 4-0 Ethilon sutures. Proper hemostasis wound closure is obtained. Family was instructed on wound care and suture removal in 7 days. Son will take her back to the extended care facility. She is awake and alert. History & Record Review Discussion w/independent historian: Patient and Family Additional record(s) reviewed:: Prior inpatient record, Prior outpatient record, Prior ED visit and Prior labs Procedures Lacerations Left lateral scalp laceration repair:: Length: 1.18 in Depth: Sub Q Shape: Linear Prep: Shure-Clens Laceration repair: Irrigated, Lidocaine with epi and Local Number of Sutures/Cody: 3 Suture Information: Ethilon, Simple and 4-0 Discharge Plan Triage Chief Complaint: Fall ED Provider: Corbin Akins Dx/Rx/DC Orders Clinical Impression: History of dementia, Head injury, Fall, Laceration of scalp Instructions: ED Head Injury (Adult), ED Laceration: All Closures Prescriptions: No Action carvedilol 6.25 mg tablet 6.25 mg PO BID atorvastatin 20 mg tablet 20 mg PO DAILY Patient Comments: Take 1 tablet by mouthTonce daily. clonazepam 0.5 mg tablet 0.25 mg PO Q6H PRN (Reason: anxiety) albuterol sulfate 90 mcg/actuation HFA aerosol inhaler 1 puff INHALATION PRN divalproex 125 mg capsule, delayed rel sprinkle 125 mg PO DAILY trazodone 100 mg tablet 100 mg PO DAILY Hold Instructions: Pt has been DC'd levetiracetam 1,000 mg tablet 1,000 mg PO BID metformin 500 mg tablet extended release 24 hr 500 mg PO QPM cyanocobalamin (vitamin B-12) [Vitamin B-12] 100 mcg tablet 100 mcg PO DAILY Primary Care Provider: Luana Hernandez Referrals: Luana Hernandez MD [Primary Care Provider] - 7 Days for suture removal Activity Restrictions/Additional Instructions: Tylenol for any head pain. Stitches out in 1 week. Clean daily with soap and water. Apply antibiotic ointment daily. Disposition Disposition: Home, Self Care
[2022-11-29] MEDS: Diphth,Pertuss(Acell),Tet Vac 0.5 ML Vial IM (20:45)
[2022-11-29] MEDS: Lidocaine 1% /Epi 1:100 (20ml) 20 ML Vial 10 ML INFILT (22:51)
[2022-11-29 22:53] VITALS: RESP 18
== END 2022-11-29 22:53 | disposition home or self-care (01) ==
PROVIDERS: Emergency Provider Emergency Medicine; PCP Family Medicine; Visit Provider Emergency Medicine
DX: S01.01XA Laceration without foreign body of scalp, initial encounter (principal); F02.80 Dementia in other diseases classified elsewhere, unspecified severity, without behavioral disturbance, psychotic disturbance, mood disturbance, and anxiety; F17.210 Nicotine dependence, cigarettes, uncomplicated; I25.10 Atherosclerotic heart disease of native coronary artery without angina pectoris; Z23 Encounter for immunization; W18.30XA Fall on same level, unspecified, initial encounter
CPT/HCPCS: 12001; 90471; 90715; 99285